=== PATIENT | female | born 1975 ===

== ENCOUNTER 2017-07-28 06:00 | Day surgery (SDC) | payer OTHER ==
[~2017-07-28 06:00] MED LIST: COZAAR50 MG; LOSARTAN POTASS25 MG PO; NADOLOL20 MG PO; [UNRECOGNIZED DRUG - OTHER]
== END 2017-07-28 15:20 | disposition home or self-care (01) ==
LOC: CIR.AMB 06:00
DX: N84.0 Polyp of corpus uteri (principal)

== ENCOUNTER 2017-12-22 19:26 | Emergency (ER) | payer OTHER ==
[~2017-12-22] VITALS: Ht 149.9 cm; Wt 59.9 kg
== END 2017-12-22 21:46 | disposition home or self-care (01) ==
LOC: ER 19:26
DX: K52.9 Noninfective gastroenteritis and colitis, unspecified (principal); E87.6 Hypokalemia; N39.0 Urinary tract infection, site not specified